=== PATIENT | male | born 2000 | race Hispanic/Latino ===

== ENCOUNTER 2025-04-29 18:30 | Emergency (ER) | payer OTHER, SELFPAY ==
[2025-04-29] MEDS ORDERED: Acetaminophen 500 MG TAB ONE (18:55)
== END 2025-04-29 20:04 ==
LOC: NAV ERS 18:30
DX: S00.83XA Contusion of other part of head, initial encounter (principal); F17.200 Nicotine dependence, unspecified, uncomplicated; V49.9XXA Car occupant (driver) (passenger) injured in unspecified traffic accident, initial encounter; Z23 Encounter for immunization
CPT/HCPCS: 36415; 70450; 70486; 72125; 90471; 90715